=== PATIENT | male | born 1955 | race Caucasian/White ===

== ENCOUNTER 2021-01-24 05:19 | Emergency (ER) | payer OTHER, SELFPAY ==
--- NOTE | ~2021-01-24 | CT_ITS ---
EXAMINATION: CT abdomen pelvis w con DATE: 01/24/2021 07:40 INDICATION: Generalized abdominal pain. TECHNIQUE: Computed tomography (CT) of the abdomen and pelvis was performed with 100 mL Omnipaque 350 intravenous contrast. Automated exposure control and iterative reconstruction technique were employe d. The dose-length product was 635.47 mGy-cm. COMPARISON: None. FINDINGS: The visualized portions of the lung bases demonstrate mild atelectasis. A calcified right l marcos nodule and calcified right hilar lymph nodes are consistent with old granulomatous disease. No pl eural effusion. The heart size is normal. No pericardial effusion. There are coronary artery calcific ations. There is diffuse hepatic steatosis. The gallbladder is normal. Calcifications in the spleen a re consistent with old granulomatous disease. There is a 5 mm low-attenuation lesion in the spleen, l ikely a benign lesion such as granulomatous disease or hemangioma. The pancreas, adrenal glands, and kidneys are normal. The prostate is moderately enlarged. There is prominent fat in the inguinal canal s that may be hernias. There is a staple line in the rectosigmoid. There is diverticulosis of the col on without evidence of diverticulitis. There are no dilated loops of bowel. The appendix is normal. T here are no pathologically enlarged lymph nodes. There is no free intraperitoneal fluid. There are briggs rgical clips in the scrotum. There is moderate lumbar spondylosis. There are chronic bilateral L5 par s defects. IMPRESSION: 1. Diffuse hepatic steatosis. 2. Prominent fat in the inguinal canals that may be hernias. Reviewed, dictated and finalized at location A. 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
[2021-01-24 05:26] VITALS: BP 151/84; PULSE 106; RESP 16; TEMP 36.3; O2SAT 96
[2021-01-24 06:24] VITALS: BP 145/90; PULSE 96; RESP 16; O2SAT 95
--- NOTE | 2021-01-24 06:35 | ED.ABDPAIN ---
HPI - Abdominal Pain General Chief Complaint: Abdominal Pain <Mane Ma MD - Last Filed: 01/24/21 06:36> Stated Complaint: N/V/D <Mane Ma MD - Last Filed: 01/24/21 06:36> Time Seen by Provider: 01/24/21 06:23 <Mane Ma MD - Last Filed: 01/24/21 06:36> History of Present Illness HPI narrative: Patient is a 65-year-old gentleman who presents the emergency with chief complaint of abdominal pain. Patient states that he has had cramping throughout his abdomen reports he had nausea vomiting and diarrhea. Patient reports not improved by anything reports that that worsened by anything either. Patient denies blood in stool reports his pure liquid reports he did eat some peanuts in the last 24 hours. Patient reports he has had a episode of diverticulitis in the past. <Mane Ma MD - Last Filed: 01/24/21 06:36> Related Data Allergies/Adverse Reactions: Allergies Allergy/AdvReac Type Severity Reaction Status Date / Time No Known Allergies Allergy Unverified 03/31/17 03:58 <Mane Ma MD - Last Filed: 01/24/21 06:36> Review of Systems Review of Systems: A 10 system review of systems was completed on the patient and is negative except for what is stated in the HPI. Nursing and ancillary documentation was reviewed. <Mane Ma MD - Last Filed: 01/24/21 06:36> Exam Narrative: GENERAL: Well-appearing, well-nourished, and in no acute distress. HEAD: Normocephalic, atraumatic. EYES: PERRLA and EOMI. ENT: Nares clear, no rhinorrhea or epistaxis. Mucous membranes moist. NECK: Supple. CHEST: Clear to auscultation. No respiratory distress. HEART: Regular rate and rhythm. No murmur heard. Normal peripheral pulses. ABDOMEN: Soft, nontender, nondistended, normal active bowel sounds. EXTREMITIES: Normal range of motion. No edema. SKIN: Warm, dry, no rash. NEURO: No focal deficits. Alert and oriented x3. PSYCH: Normal mood and affect. <Mane Ma MD - Last Filed: 01/24/21 06:36> Course Vital Signs Vital signs: Vital Signs Temperature 36.3 C L 01/24/21 05:26 Pulse Rate 106 H 01/24/21 05:26 Respiratory Rate 16 01/24/21 05:26 Blood Pressure 151/84 H 01/24/21 05:26 Pulse Oximetry 96 01/24/21 05:26 Temperature 36.3 C L 01/24/21 05:26 Pulse Rate 73 01/24/21 10:17 Respiratory Rate 16 01/24/21 10:17 Blood Pressure 143/96 H 01/24/21 10:17 Pulse Oximetry 96 01/24/21 10:17 <Mane Ma MD - Last Filed: 01/24/21 06:36> Vital Signs Temperature 36.3 C L 01/24/21 05:26 Pulse Rate 106 H 01/24/21 05:26 Respiratory Rate 16 01/24/21 05:26 Blood Pressure 151/84 H 01/24/21 05:26 Pulse Oximetry 96 01/24/21 05:26 Temperature 36.3 C L 01/24/21 05:26 Pulse Rate 73 01/24/21 10:17 Respiratory Rate 16 01/24/21 10:17 Blood Pressure 143/96 H 01/24/21 10:17 Pulse Oximetry 96 01/24/21 10:17 <Conchita Pressley MD - Last Filed: 01/24/21 11:55> MDM - Abdominal Pain MDM Narrative Medical decision making narrative: Currently patient feeling okay, denying any symptoms. Is telling me that he had vomited once and had 1 loose stool once over the last 24 hours. Patient currently is asymptomatic, the plan to discharge him home. The diagnosis of possible stress/anxiety inducing GI symptoms or viral infection which is not clear at this time. <Conchita Pressley MD - Last Filed: 01/24/21 11:55> Differential Diagnosis Differential diagnosis: Likely gastroenteritis <Conchita Pressley MD - Last Filed: 01/24/21 11:55> Lab Data Result diagrams: : 01/24/21 06:38 01/24/21 06:39 <Mane Ma MD - Last Filed: 01/24/21 06:36> Labs: Lab Results 01/24/21 01/24/21 01/24/21 Range/Units 06:38 06:38 06:39 WBC 12.2 H (4.5-10.0) K/mm3 RBC 4.93 (4.6-6.20) M/mm3 Hgb 15.5 (14.0-1
[2021-01-24] MEDS: SODIUM CHLORIDE 0.9% IV 1,000 ML 999 ML IV CONT (06:42)
[2021-01-24] MEDS: ONDANSETRON INJ 4 MG/2 ML VIAL IV PUSH (06:43)
[2021-01-24] MEDS: DICYCLOMINE HCL INJ 20 MG/2 ML VIAL IM (06:44)
[2021-01-24 06:53] LABS: Basophils Absolute Auto 0.1 K/mm3 (0.0-0.1); Basophils Percent Auto 0.5 % (0.2-1.2); Eosinophils Absolute Auto 0.1 K/mm3 (0-0.3); Eosinophils Percent Auto 0.6 % (0-4.4); Hematocrit 44.2 % (42.0-52.0); Hemoglobin 15.5 g/dL (14.0-18.0); Immature Granulocyte Absolute 0.03 K/mm3 (0.00-0.031); Immature Granulocyte Percent A 0.2 % (0-0.5); Lymphocytes Absolute Auto 1.36 K/mm3 (0.9-3.2); Lymphocytes Percent Auto 11.2 % (18.3-44.2); Mean Corpuscular HGB Conc 35.1 g/dl (32-36); Mean Corpuscular Hemoglobin 31.4 pg (26-34); Mean Corpuscular Volume 89.7 fl (80-100); Mean Platelet Volume 9.9 fl (7.4-10.4); Monocytes Absolute Auto 0.9 K/mm3 (0.1-0.6); Monocytes Percent Auto 7.7 % (2.6-8.5); Neutrophils Absolute Auto 9.7 K/mm3 (1.3-6.7); Neutrophils Percent Auto 79.8 % (45.5-73.1); Platelet Count Result 288 k/mm3 (150-375); Red Blood Count 4.93 M/mm3 (4.6-6.20); Red Cell Distribution Width 12.1 % (11.5-14.5); White Blood Count 12.2 K/mm3 (4.5-10.0)
[2021-01-24 07:04] LABS: Lactic Acid Reflex 1.8 mmol/L (0.7-2.1)
[2021-01-24 07:05] LABS: Alanine Aminotransferase 42 U/L (4-50); Albumin Level 4.6 g/dL (3.5-5.1); Alkaline Phosphatase 97 U/L (38-126); Anion Gap 7 mmol/L (8-16); Aspartate Amino Transferase 33 U/L (17-59); Bilirubin,Total 0.4 mg/dL (0.2-1.3); Blood Urea Nitrogen 23 mg/dL (9-20); Calcium 10.1 mg/dL (8.4-10.2); Carbon Dioxide 29 mmol/L (22-30); Chloride 97 mmol/L (98-107); Estimated CRCL calculation 57 ml/min; Estimated Glomerular Filt Rate > 60; Glucose 144 mg/dL (65-110); Lipase 77 U/L (23-300); Potassium 4.2 mmol/L (3.4-5.0); Sodium 133 mmol/L (137-145)
[2021-01-24 08:44] VITALS: BP 143/87; PULSE 76; RESP 17; O2SAT 95
[2021-01-24 09:01] LABS: Add Urine Microscopic? NO; Appearance Urine Clear (Clear); Bilirubin Urine Negative (Negative); Blood Urine Negative (Negative); Color Urine Yellow (Yellow); Glucose Urine UA Negative (Negative); Ketones Urine Negative (Negative); Leukocyte Esterase Ur Negative LEU/UL (Negative); Nitrate Urine Negative (Negative); Protein Urine Negative (Negative); Urobilinogen Urine Negative mg/dL (<2.0)
[2021-01-24 09:02] LABS: Specific Grav Ur 1.043 (1.001-1.035)
[2021-01-24 10:17] VITALS: BP 143/96; PULSE 73; RESP 16; O2SAT 96
[2021-01-24 12:04] VITALS: BP 143/78; PULSE 71; RESP 18; O2SAT 97
== END 2021-01-24 12:05 | disposition home or self-care (01) ==
PROVIDERS: Emergency Medicine; Emergency Provider Emergency Medicine; PCP Physician Assistant
DX: K52.9 Noninfective gastroenteritis and colitis, unspecified (principal); K76.0 Fatty (change of) liver, not elsewhere classified
CPT/HCPCS: 36415; 74177; 80053; 81003; 83605; 83690; 85025; 96361; 96372; 96374; 99284; J0500; J2405; J7030; Q9967

== ENCOUNTER → 2022-01-15 10:58 | Outpatient (CLI) | payer OTHER, SELFPAY ==
--- NOTE | ~2022-01-15 | XR_ITS ---
XR knee RT 3V DATE: 01/15/2022 11:24 INDICATION: Right knee pain and swelling for 2 months. TECHNIQUE: 3 views COMPARISON: None FINDINGS: Suprapatellar knee joint effusion is suggested. There is prominent medial compartment space narrowing and periarticular spurring. No fracture or dislocation. No periosteal reaction or bone destruction. Faint chondrocalcinosis is briggs ggested at the medial compartment. Mild periarticular spurring of the lateral compartment. IMPRESSION: Osteoarthritis, most severe at the medial compartment Reviewed, dictated and finalized at location B. T PERFORMER
== END ==
PROVIDERS: PCP Nurse Practitioner Family; Visit Provider Nurse Practitioner Family
DX: M17.11 Unilateral primary osteoarthritis, right knee (principal)
CPT/HCPCS: 73562

== ENCOUNTER 2022-08-23 11:09 | Emergency (ER) | payer OTHER, SELFPAY ==
--- NOTE | ~2022-08-23 | XR_ITS ---
EXAMINATION: XR knee LT min 4V DATE: 08/23/2022 12:18 INDICATION: Left knee pain. Injury. TECHNIQUE: 4 views of left knee were obtained. COMPARISON: None. FINDINGS: Bone alignment is normal. No fracture. There is mild tricompartmental osteoarthritis. There is a small knee joint effusion. IMPRESSION: 1. Mild left knee osteoarthritis. 2. Small left knee joint effusion. Reviewed, dictated and finalized at location A.
[2022-08-23 11:10] VITALS: BP 138/79; PULSE 69; RESP 16; TEMP 36.3; O2SAT 99
--- NOTE | 2022-08-23 13:52 | ED.LOWEXIN ---
HPI - Extremity Injury (Lower) General Chief Complaint: Extremity Injury, Lower Stated Complaint: left knee injury Time Seen by Provider: 08/23/22 13:39 History of Present Illness HPI Narrative: Patient is a 67-year-old male presenting with left knee pain. Patient states that he was walking up his steps last night when he developed severe left knee pain. States that he had to crawl up several stairs because the pain was so bad. Took some ibuprofen with moderate relief. Denies recent injuries. Denies further complaints. Related Data Allergies Allergy/AdvReac Type Severity Reaction Status Date / Time No Known Allergies Allergy Unverified 08/23/22 13:36 Review of Systems Review of Systems: All systems reviewed & are unremarkable except as noted in HPI and below Exam Narrative: GENERAL: Well-appearing, well-nourished, and in no acute distress. HEAD: Normocephalic, atraumatic. EYES: PERRLA and EOMI. ENT: Nares clear, no rhinorrhea or epistaxis. Mucous membranes moist. NECK: Supple. CHEST: No respiratory distress. HEART: Regular rate and rhythm ABDOMEN: Soft, nontender, nondistended EXTREMITIES: Normal range of motion. No edema. left knee without erythema or swelling, ROM intact SKIN: Warm, dry, no rash. NEURO: No focal deficits. Alert and oriented x3. PSYCH: Normal mood and affect. Course Vital Signs Vital signs: Vital Signs Temperature 97.3 F L 08/23/22 11:10 Pulse Rate 69 08/23/22 11:10 Respiratory Rate 16 08/23/22 11:10 Blood Pressure 138/79 08/23/22 11:10 Pulse Oximetry 99 08/23/22 11:10 Temperature 97.3 F L 08/23/22 11:10 Pulse Rate 69 08/23/22 11:10 Respiratory Rate 16 08/23/22 11:10 Blood Pressure 138/79 08/23/22 11:10 Pulse Oximetry 99 08/23/22 11:10 MDM - Extremity Injury (Lower) MDM Narrative Medical decision making narrative: Patient is a 67-year-old male presenting with left knee pain. Vitals within normal limits. Exam remarkable for the above. X-rays show osteoarthritis and a small joint effusion. No other acute abnormalities. Advised that the patient use Tylenol and ibuprofen for pain control. Discussed appropriate supportive care with rest, ice, elevation. Advised following up with PCP and orthopedics. Appropriate return precautions given. Patient voiced understanding was agreeable plan. Discharged in stable condition. Differential Diagnosis Differential diagnosis: Likely acute internal derangement of knee Medical Records Attestation: I reviewed the patient's medical records. Imaging Data Radiologist's impression: ITS Impressions Knee X-Ray 08/23/22 12:26 IMPRESSION: 1. Mild left knee osteoarthritis. 2. Small left knee joint effusion. Critical Care Time Critical Care Time Critical Care Time: No Discharge Plan Discharge Clinical Impression: Acute internal derangement of knee Patient Disposition: Home, Self-Care Condition: Stable Instructions: Antibiotic Form, Knee Pain (ED) Additional Instructions: Your x-rays today show a small amount of fluid in your left knee which may be causing your pain. Please use Tylenol and ibuprofen for pain control. We recommend resting and icing the knee. Please follow-up with your PCP as well as orthopedic surgery. If your symptoms worsen, you develop fevers greater than 100.4, numbness or weakness, or other concerning symptoms arise, please return to the ER. Prescriptions: No Action ondansetron HCl [Zofran] 4 mg tablet 4 mg PO Q6H PRN (Reason: nausea and vomiting) Qty: 10 0RF Follow-up/Referrals: Shereen,EDMUNDO Sahu [Primary Care Provider] - Alex Lawrence MD [Physician] -
== END 2022-08-23 14:53 | disposition home or self-care (01) ==
PROVIDERS: Emergency Provider Emergency Medicine; PCP Nurse Practitioner Family
DX: M23.92 Unspecified internal derangement of left knee (principal)
CPT/HCPCS: 73564; 99283